=== PATIENT | female | born 1980 | race Caucasian/White ===

== ENCOUNTER 2017-01-11 10:53 | Emergency (ER) | payer MEDICAID ==
[~2017-01-11] VITALS: Ht 152.4 cm; Wt 83.5 kg
[2017-01-11 10:57] VITALS: Ht 152.4 cm; Wt 83.5 kg
--- NOTE | 2017-01-11 11:55 | ERD ---
ER Documentation Chief Complaint Date/Time DATE: 01/11/17 TIME: 11:52 Chief Complaint Complains of cough with chest wall pain since yesterday HPI This is a 36-year-old female who presents the emergency department today complaining of pain in her chest when she takes a deep breath and a cough that started yesterday. States she has some left ear pain. Patient states that approximately 1 week ago she had fevers, body aches runny nose and sore throat. Denies any dizziness, vomiting. States she has not tried any cough medicine. States the cough is worse at night. Denies cigarette smoking, use of oral contraceptive pills or prolonged travel. ROS All systems reviewed and are negative except as per history of present illness. Medications Home Meds Active Scripts Cetirizine Hcl* (Zyrtec*) 10 Mg Capsule, 10 MG PO DAILY, #14 TAB.CHEW Prov:KRISTIAN PEREZ PA-C 01/11/17 Guaifenesin-Dextromethorphan* (Robitussin* DM) 100MG/10MG/5ML Syrup, 10 ML PO Q4H Y for COUGH for 5 Days, ML Prov:KRISTIAN PEREZ PA-C 01/11/17 Naproxen* (Naprosyn*) 500 Mg Tablet, 500 MG PO BID Y for PAIN AND/OR INFLAMMATION, #30 TAB Prov:KRISTIAN PEREZ PA-C 01/11/17 Allergies Allergies: Coded Allergies: No Known Allergy (Unverified , 01/11/17) PMhx/Soc Medical and Surgical Hx: pt denies Medical Hx, pt denies Surgical Hx Physical Exam Vitals Vital Signs Date Time Temp Pulse Resp B/P Pulse Ox O2 Delivery O2 Flow Rate FiO2 01/11/17 10:57 98.8 74 20 126/58 97 Physical Exam Const: NAD Head: Atraumatic Eyes: Normal Conjunctiva ENT: Ears TMs normal. Nose no drainage. Throat erythema no exudate Neck: Full range of motion..~ No meningismus. Resp: Clear to auscultation bilaterally absent breath sounds. No wheezing. Cardio: Regular rate and rhythm, no murmurs Abd: Soft, non tender, non distended. Normal bowel sounds Skin: No petechiae or rashes Back: No midline or flank tenderness Ext: No cyanosis, or edema Neur: Awake and alert Psych: Normal Mood and Affect Results 24 hrs DIAGNOSTIC IMAGING REPORT Patient: RACH PRUETT : 1980 Age: 36 Sex: F MR #: [id number] DOS: 01/11/17 0000 Ordering MD: KRISTIAN PEREZ PA-C Location: [facility] Room/Bed: PROCEDURE: XR Chest. CLINICAL INDICATION: Cough TECHNIQUE: Single frontal view of the chest was obtained COMPARISON: None FINDINGS: No pleural effusion or pneumothorax. No consolidation. Normal cardiomediastinal silhouette. No acute osseous abnormality. IMPRESSION: No acute cardiopulmonary disease. RPTAT: EE Physician Marvin Date Time Electronically viewed and signed by Luther Campbell Physician on 01/11/2017 12 :13 GC/ CC: KRISTIAN PEREZ PA-C Procedures/MDM This a 36-year-old female who presents the emergency department today complaining of chest wall pain and a cough that started yesterday. Patient is afebrile and otherwise well-appearing however given her pain I did obtain an EKG and chest x-ray. EKG read and interpreted by Dr. Vicente [address] elevation. No QT prolongation. Normal sinus rhythm. Low suspicion for Acute OH, PE, pericarditis Chest x-ray shows no acute cardio pulmonary disease. Low suspicion for pneumonia, PE, abscess, pleural effusion. Is not actively coughing and have low suspicion for pertussis at this time. Patient symptoms at this time is consistent with cough likely viral especially given her symptoms that she had 1 week ago of other URI complaints. She was given a prescription for Naprosyn, Robitussin, Zyrtec At this time the patient is stable for discharge and outpatient management. Patient should follow up with their PCP in the next 1-2 days. They may return to the emergency department sooner for any persistent or worsening of symptoms. Patient understood and agreed with the plan. Departure Diagnosis: Primary Impression: Chest wall pain Additional Impression: Cough Condition: Fair KRISTIAN PEREZ PA-C Jan 11, 2017 11:55
--- NOTE | 2017-01-11 12:13 | RADRPT ---
PROCEDURE: XR Chest. CLINICAL INDICATION: Cough TECHNIQUE: Single frontal view of the chest was obtained COMPARISON: None FINDINGS: No pleural effusion or pneumothorax. No consolidation. Normal cardiomediastinal silhouette. No acute osseous abnormality. IMPRESSION: No acute cardiopulmonary disease. RPTAT: EE Luther Campbell Physician Date Time Electronically viewed and signed by Luther Campbell Physician on 01/11/2017 12:13 /
[2017-01-11] MEDS ORDERED: NAPR-260 PO (12:57)
[2017-01-11] MEDS ORDERED: UDROBDM PO (12:57)
[2017-01-11] MEDS ORDERED: CETI10CA PO (12:57)
== END 2017-01-11 13:24 | disposition home or self-care (01) ==
LOC: FTE 10:53
DX: R07.89 Other chest pain (principal); R05 Cough
CPT/HCPCS: 71010; 93005; Z7502